=== PATIENT | female | born 1975 ===

== ENCOUNTER 2017-10-09 14:14 | Emergency (ER) | payer OTHER ==
[2017-10-09 14:23] VITALS: TEMP 96.4
--- NOTE | 2017-10-09 15:29 | ED PDOC ---
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 SWELLING NOTED ALONG RIGHT SIDE OF FACE. INJURY OCCURRED AROUND NOON TODAY. NO LOC.) Past Medical History Reviewed: Historical Data, Nursing Documentation, Vital Signs Vital Signs: Last Vital Signs Temp 96.4 F L 10/09/17 14:19 Pulse 68 10/09/17 14:19 Resp 20 10/09/17 14:19 BP 116/66 10/09/17 14:19 Pulse Ox 100 10/09/17 14:19 - Medical History PMH: Anxiety, Depression, Gastritis, Hyperlipidemia, Hypothyroidism, Seizures Denies: Arthritis, CHF, COPD, HTN, Hypercholesterolemia, Chronic Kidney Disease, Rheumatoid Arthritis - Surgical History Surgical History: Cholecystectomy - Family History Family History: States: Unknown Family Hx - Home Medications Home Medications: Ambulatory Orders Medication Instructions Recorded Alprazolam [Xanax] 0.5 mg PO BID PRN #0 tab 11/10/15 Aspirin [Ecotrin] 81 mg PO DAILY #0 tabec 11/10/15 Famotidine [Pepcid] 20 mg PO DAILY #30 tab 11/10/15 Ibuprofen [Motrin] 600 mg PO Q6H PRN #0 tab 11/10/15 Lactulose [Generlac] 20 gm PO DAILY PRN #0 dose 11/10/15 Lamotrigine [Lamictal] 25 mg PO Q12H #0 tab 11/10/15 Levothyroxine [Synthroid] 75 mg PO DAILY #0 tab 11/10/15 Oxybutynin Chloride 5 mg PO QPM #0 tab 11/10/15 Pantoprazole Sodium [Protonix] 40 mg PO DAILY #0 ect 11/10/15 Sennosides A and B [Senna] 8.6 mg PO DAILY PRN #0 tab 11/10/15 Triamcinolone Acetonide [Nasacort] 2 spray CHUCK DAILY PRN #0 ml 11/10/15 lamoTRIgine [Lamictal] 25 mg PO Q12H #0 tab 11/10/15 Ibuprofen [Motrin] 600 mg PO Q8 PRN #21 tab 10/09/17 - Allergies Allergies/Adverse Reactions: Allergies Allergy/AdvReac Type Severity Reaction Status Date / Time loratadine Allergy RASH Verified 10/04/16 00:09 Review of Systems ROS Statement: Except As Marked, All Systems Reviewed And Found Negative Physical Exam - Reviewed Nursing Documentation Reviewed: Yes Vital Signs Reviewed: Yes - Physical Exam Appears: Positive for: Well, Non-toxic, No Acute Distress Head Exam: Positive for: ATRAUMATIC, NORMAL INSPECTION, NORMOCEPHALIC Skin: Positive for: Normal Color, Warm, DRY Eye Exam: Positive for: EOMI, Normal appearance, PERRL ENT: Positive for: Normal ENT Inspection, Other (RIGHT FACIAL SWELLING ECCHYMOSIS) Neck: Positive for: Normal, Painless ROM Cardiovascular/Chest: Positive for: Regular Rate, Rhythm Respiratory: Positive for: CNT, Normal Breath Sounds Gastrointestinal/Abdominal: Positive for: Normal Exam, Bowel Sounds, Soft Back: Positive for: Normal Inspection Extremity: Positive for: Normal ROM Neurologic/Psych: Positive for: Alert, Oriented - ECG O2 Sat by Pulse Oximetry: 100 - Progress ED Course And Treament: CT MAXILLOFACIAL Impression: No acute findings identified. See above. CT HEAD: IMPRESSION: Stable appearing extensive postoperative changes within the posterior fossa as above. Stable appearing mild ventricular dilatation. Right trans parietal HOTEL HOUSEMAN shunt in stable position. Additional findings as above. Disposition - Clinical Impression Clinical Impression: Facial contusion - Patient ED Disposition Is Patient to be Admitted: No - Disposition Disposition: Routine/Home Disposition Time: 18:31 Condition: STABLE Prescriptions: Ibuprofen [Motrin] 600 mg PO Q8 PRN #21 tab PRN Reason: Pain, Moderate (4-7) Instructions: Facial Contusion (ED) Forms: [employer] (Mauritian)
--- NOTE | 2017-10-09 17:48 | CT ---
PROCEDURE: CT HEAD WITHOUT CONTRAST. HISTORY: FACIAL INJURY COMPARISON: Noncontrast head CT performed 10/04/16 TECHNIQUE: Axial computed tomography images were obtained through the head/brain without intravenous contrast. Radiation dose: Total exam DLP = 365.24 mGy-cm. This CT exam was performed using one or more of the following dose reduction techniques: Automated exposure control, adjustment of the mA and/or kV according to patient size, and/or use of iterative reconstruction technique. FINDINGS: HEMORRHAGE: No intracranial hemorrhage. BRAIN: Right trans parietal REGULATORY TECHNICIAN shunt catheter in stable appearing position. Linear encephalomalacia re-identified within the right parietal lobe. Re-identified extensive postoperative changes involving the posterior fossa. Cerebellum demonstrates encephalomalacia which abuts a chronically dilated 4th ventricle. Adjacent extra-axial hyperdensity re-identified which may reflect chronic dural thickening. Lens shaped fluid density within the posterior fossa posteriorly at the site of prior craniotomy suspicious for chronic postoperative fluid collection. Overall stable in appearance. Tiny scattered calcifications within the brainstem, right temporal lobe, and right basal ganglia. Additional scattered white matter hypodensities, which are nonspecific, but often seen with chronic microvascular ischemic disease. Please note that MRI with diffusion imaging is more sensitive in the detection of acute ischemic event. VENTRICLES: Stable. CALVARIUM: Prior suboccipital craniectomy. PARANASAL SINUSES: Unremarkable as visualized. No significant inflammatory changes. MASTOID AIR CELLS: Unremarkable as visualized. No inflammatory changes. OTHER FINDINGS: None. IMPRESSION: Stable appearing extensive postoperative changes within the posterior fossa as above. Stable appearing mild ventricular dilatation. Right trans parietal REGULATORY TECHNICIAN shunt in stable position. Additional findings as above.
--- NOTE | 2017-10-09 17:58 | CT ---
CT maxillofacial bones without IV contrast Indication: Facial injury Comparison: Noncontrast head CT performed the same day. Technique: Axial computed tomography images were obtained of the maxillofacial bones without the use of intravenous contrast. Coronal and sagittal reformatted images were generated and reviewed. This CT exam was performed using 1 or more of the falling dose reduction techniques: Automated exposure control, adjustment of the MAA and/or kV according to patient size, and/or use of iterative reconstruction technique. Radiation dose: Total exam DLP = 748.22 mGy-cm. Findings: Streak artifact from dental hardware. The facial bones appear intact without acute displaced fracture. The orbits appear unremarkable. The temporomandibular joints are located. The mastoid air cells appear clear. The paranasal sinuses appear clear without air-fluid levels. Please refer to CT of the brain for more detailed discussion regarding visualized portions of the brain. Impression: No acute findings identified. See above.
[2017-10-09 19:05] VITALS: BP 105/70; PULSE 79; RESP 18; O2SAT 98
== END 2017-10-09 19:24 | disposition home or self-care (01) ==
LOC: H.ER 14:14
DX: S00.83XA Contusion of other part of head, initial encounter (principal); W19.XXXA Unspecified fall, initial encounter; Y92.89 Other specified places as the place of occurrence of the external cause

== ENCOUNTER 2018-03-30 01:20 | Emergency (ER) | payer OTHER ==
[2018-03-30 01:30] VITALS: O2SAT 100
--- NOTE | 2018-03-30 02:01 | ED PDOC ---
HPI: Trauma/Fall - HPI Additional Complaint(s): 43 yo female with history of hypothyroidsim, seizures, brain tumor s/p resection and MEMORY CARE DIRECTOR shunt in place brought in by EMS for eval of a fall and head injury sustained approx 1 hour ago. Daughter states patient was alone in bedroom and she and her brother heard a noise and found her mother in the floor at bedside unresponsive. Daughter reports around 2 min with LOC. Daughter states patient immediately complained of pain to right side of head and noticed a bruise on R forehead. Daughter states patient then began to "choke up" on her words and complained of seeing "black". Daughter states patient usually gets these type of after a fall. Denies vomiting, vision changes, extremity numbness/ weakness, neck/back pain, chest pain. Patient very poor historian at this time. <Alok Zeng - Last Filed: 03/30/18 05:14> <Ap Scott - Last Filed: 03/30/18 23:31> - HPI Time Seen by Provider: 03/30/18 01:38 Chief Complaint (Nursing): Trauma Supervising Attending Note - Supervising Attending Note The Documented history was done by the: Physician Data Deliverables Manager The documented physical exam was done by the: Physician Data Deliverables Manager - Attestation: I have personally seen and examined this patient.: Yes I have fully participated in the care of the patient.: Yes I have reviewed all pertinent clinical information, including history, physical exam and plan: Yes <Ap Scott - Last Filed: 03/30/18 23:31> Past Medical History Vital Signs: Last Vital Signs Temp 98 F 03/30/18 01:22 Pulse 84 03/30/18 01:22 Resp 16 03/30/18 01:22 BP 137/62 03/30/18 01:22 Pulse Ox 100 03/30/18 01:22 - Medical History PMH: Anxiety, Depression, Gastritis, Hyperlipidemia, Hypothyroidism, Seizures Denies: Arthritis, CHF, COPD, HTN, Hypercholesterolemia, Chronic Kidney Disease, Rheumatoid Arthritis - Surgical History Surgical History: Cholecystectomy - Family History Family History: States: Unknown Family Hx <Alok Zeng - Last Filed: 03/30/18 05:14> Vital Signs: Last Vital Signs Temp 97.8 F 03/30/18 05:34 Pulse 72 05/20/18 05:34 Resp 18 03/30/18 05:34 BP 105/71 03/30/18 05:34 Pulse Ox 100 03/30/18 05:34 <Ap Scott - Last Filed: 03/30/18 23:31> - Home Medications Home Medications: Ambulatory Orders Medication Instructions Recorded Alprazolam [Xanax] 0.5 mg PO BID PRN #0 tab 11/10/15 Aspirin [Ecotrin] 81 mg PO DAILY #0 tabec 11/10/15 Famotidine [Pepcid] 20 mg PO DAILY #30 tab 11/10/15 Ibuprofen [Motrin] 600 mg PO Q6H PRN #0 tab 11/10/15 Lactulose [Generlac] 20 gm PO DAILY PRN #0 dose 11/10/15 Lamotrigine [Lamictal] 25 mg PO Q12H #0 tab 11/10/15 Levothyroxine [Synthroid] 75 mg PO DAILY #0 tab 11/10/15 Oxybutynin Chloride 5 mg PO QPM #0 tab 11/10/15 Pantoprazole Sodium [Protonix] 40 mg PO DAILY #0 ect 11/10/15 Sennosides A and B [Senna] 8.6 mg PO DAILY PRN #0 tab 11/10/15 Triamcinolone Acetonide [Nasacort] 2 spray CHUCK DAILY PRN #0 ml 11/10/15 lamoTRIgine [Lamictal] 25 mg PO Q12H #0 tab 11/10/15 Ibuprofen [Motrin] 600 mg PO Q8 PRN #21 tab 10/09/17 - Allergies Allergies/Adverse Reactions: Allergies Allergy/AdvReac Type Severity Reaction Status Date / Time loratadine Allergy RASH Verified 10/04/16 00:09 Review of Systems ROS Statement: Except As Marked, All Systems Reviewed And Found Negative <Alok Zeng - Last Filed: 03/30/18 05:14> Physical Exam - Reviewed Nursing Documentation Reviewed: Yes Vital Signs Reviewed: Yes - Physical Exam Appears: Positive for: No Acute Distress Head Exam: Positive for: NORMOCEPHALIC (Bruise and swelling noted on R side of forehead.) Skin: Positive for: Normal Color, Warm, Dry Eye Exam: Positive for: EOMI, PERRL Cardiovascular/Chest: Positive for: Regular Rate, Rhythm. Negative for: Edema Respiratory: Positive for: Normal Breath Sounds. Negative for: Rhonchi, Wheezing Gastrointestinal/Abdominal: Positive for: Bowel Sounds, Soft. Negative for: Tenderness, Distended Neurologic/Psych: Positive for: Alert. Negative for: Oriented <Alok Zeng - Last Filed: 03/30/18 05:14> - Laboratory Results Result Diagrams: 03/30/18 02:57 - ECG O2 Sat by Pulse Oximetry: 100 - Progress ED Course And Treament: CBC, CMP MG, phos PT/PTT Head CT w/o contrast. Tylenol PO Ativan 1 mg IV (sedation for CT, pt anxious with exam) Reeval. 0330 Patient sleeping no complaint of pain at this time. Difficult to obtain blood due to bad veins. CBC mild anemia H/H 10.8/32.6 HEAD W/O CONTRAST Exam Date: 03/30/18 This imaging exam was performed at [facility] EXAM: CT Head Without Intravenous Contrast CLINICAL HISTORY: 43 years old, female; Injury or trauma; Fall; Initial encounter; Blunt trauma (contusions or hematomas); Consciousness not specified; Additional info: Fall, head injury TECHNIQUE: Axial computed tomography images of the head/brain without intravenous contrast. All CT scans at this facility use one or more dose reduction techniques, viz.: automated exposure control; ma/kV adjustment per patient size (including targeted exams where dose is matched to indication; i.e. head); or iterative reconstruction technique. Coronal and sagittal reformatted images were created and reviewed. COMPARISON: CT - HEAD W/O CONTRAST 2017-10-09 17:19 FINDINGS: Brain: Stable encephalomalacia in the cerebellum. There is mild diffuse cerebral atrophy present, consistent with this patient's age. There is mild diffuse heterogeneity of the white matter attenuation, consistent with chronic white matter ischemic changes. There is encephalomalacia along the right parietal ventriculostomy shunt catheter. No hemorrhage. Ventricles: The ventricular system demonstrates mild diffuse compensatory enlargement. Bones/joints: Status post suboccipital craniectomy. Sinuses: Unremarkable as visualized. No acute sinusitis. Mastoid air cells: Unremarkable as visualized. No mastoid effusion. Tubes, lines and devices: Stable right-sided ventriculostomy shunt catheter entering from a parietal approach. IMPRESSION: Age-related atrophy and chronic white matter ischemic changes, with no evidence of an acute intracranial abnormality. Stable cerebellar encephalomalacia. Stable right parietal encephalomalacia along the ventriculostomy shunt catheter tract. <Alok Zeng - Last Filed: 03/30/18 05:14> - Laboratory Results Result Diagrams: 03/30/18 02:57 <Ap Scott - Last Filed: 03/30/18 23:31> Disposition - Patient ED Disposition Is Patient to be Admitted: No - Disposition Disposition: Routine/Home Disposition Time: 05:13 <Alok Zeng - Last Filed: 03/30/18 05:14> <Ap Scott - Last Filed: 03/30/18 23:31> - Clinical Impression Clinical Impression: Head injury - Disposition Condition: STABLE Additional Instructions: f/u with PCP in 2-3 days ER precautions reviewed Instructions: Minor Head Injury Forms: [employer] (Spanish)
[2018-03-30 03:02] LABS: BASO % 0.4 % (0.0-2.0); EOS # 0.1 K/uL (0.0-0.7); EOS % 1.7 % (0.0-4.0); HEMOGLOBIN 10.8 g/dL (12.0-16.0); LYMPH # 1.4 K/uL (1.0-4.3); LYMPH % 20.6 % (20.0-40.0); MEAN CELL VOLUME 93.8 fl (81.0-99.0); MEAN CORPUSCULAR HEMOGLOBIN 31.1 pg (27.0-31.0); MEAN CORPUSCULAR HGB CONC 33.2 g/dL (33.0-37.0); MEAN PLATELET VOLUME 8.1 fl (7.2-11.7); MONO # 0.4 K/uL (0.0-0.8); MONO % 5.9 % (0.0-10.0); NEUT # 4.8 K/uL (1.8-7.0); NEUT % 71.4 % (50.0-75.0); NRBC % 0.1 % (0.0-0.0); RBC 3.48 Mil/uL (3.80-5.20); RED CELL DISTRIBUTION WIDTH 14.2 % (11.5-14.5); WHITE BLOOD COUNT 6.8 K/uL (4.8-10.8)
--- NOTE | 2018-03-30 04:22 | CT ---
EXAM: CT Head Without Intravenous Contrast CLINICAL HISTORY: 43 years old, female; Injury or trauma; Fall; Initial encounter; Blunt trauma (contusions or hematomas); Consciousness not specified; Additional info: Fall, head injury TECHNIQUE: Axial computed tomography images of the head/brain without intravenous contrast. All CT scans at this facility use one or more dose reduction techniques, viz.: automated exposure control; ma/kV adjustment per patient size (including targeted exams where dose is matched to indication; i.e. head); or iterative reconstruction technique. Coronal and sagittal reformatted images were created and reviewed. COMPARISON: CT - HEAD W/O CONTRAST 2017-10-09 17:19 FINDINGS: Brain: Stable encephalomalacia in the cerebellum. There is mild diffuse cerebral atrophy present, consistent with this patient's age. There is mild diffuse heterogeneity of the white matter attenuation, consistent with chronic white matter ischemic changes. There is encephalomalacia along the right parietal ventriculostomy shunt catheter. No hemorrhage. Ventricles: The ventricular system demonstrates mild diffuse compensatory enlargement. Bones/joints: Status post suboccipital craniectomy. Sinuses: Unremarkable as visualized. No acute sinusitis. Mastoid air cells: Unremarkable as visualized. No mastoid effusion. Tubes, lines and devices: Stable right-sided ventriculostomy shunt catheter entering from a parietal approach. IMPRESSION: Age-related atrophy and chronic white matter ischemic changes, with no evidence of an acute intracranial abnormality. Stable cerebellar encephalomalacia. Stable right parietal encephalomalacia along the ventriculostomy shunt catheter tract.
[2018-03-30 05:51] VITALS: BP 105/71; PULSE 72; RESP 18; TEMP 97.8
== END 2018-03-30 05:35 | disposition home or self-care (01) ==
LOC: H.ER 01:20
DX: S09.90XA Unspecified injury of head, initial encounter (principal); E03.9 Hypothyroidism, unspecified; E78.5 Hyperlipidemia, unspecified; Z86.59 Personal history of other mental and behavioral disorders; G93.89 Other specified disorders of brain; R56.9 Unspecified convulsions; S00.83XA Contusion of other part of head, initial encounter; Z79.82 Long term (current) use of aspirin; Z98.2 Presence of cerebrospinal fluid drainage device; Z98.890 Other specified postprocedural states; W19.XXXA Unspecified fall, initial encounter
CPT/HCPCS: 70450; 85025; 96374; 99285; J2060

== ENCOUNTER 2018-12-10 14:03 | Inpatient (IN) | payer OTHER ==
--- NOTE | 2018-12-10 14:15 | ED PDOC ---
HPI:STROKE - Time Time: 14:13 - Chief Complaint Chief Complaint: Slurred speech - Onset Date: 12/10/18 Time: 12:00 - Timing Timing: Currently Symptomatic - Context Context: Standing - Location Location: Speech - Severity of pain Maximum severity:: Severe Severity Current: Severe - Associated Symptoms Associated symptoms:: Headache - Exacerbated by Exacerbated by:: Nothing - Relieved by Relieved by:: Nothing - TPA Positive for Contraindication: Yes Reason tPA is not being Administered: Trauma - Notes: Notes:: Hx obtained from paramedics and daughter. 12 noon today, pt fell possibly tripped on edge of bed. Hit left side of head on wall. No LOC. Since injury has had slurred speech and agitation. Indicating that she has headache left side NIHSS Stroke Scale - How Severe is the Stroke Level of Consciousness: 0=Alert LOC to Questions: 2=Neither correct LOC to commands: 1=Obeys one correctly Best Gaze: 0=Normal Visual: 0=No visual loss Facial: 0=Normal Motor Arm - Left: 0=No drift Motor Arm - Right: 0=No drift Motor Leg - Left: 4=No movement Motor Leg - Right: 4=No movement Limb Ataxia: 0=Absent Sensory: 0=Normal Best Language: 2=Severe aphasia Dysarthia: 2=Severe, near unintelligible or worse Extinction & Inattention (Neglect): 0=Normal, no object Score: 15 rTPA Inclusion/Exclusion - Refusal of Treatment Patient Refused Treatment: No - Inclusion Criteria for Altepase Patient is 18 years or Older: Yes The Clinical Diagnosis of Ischemic Stroke That is Causing a Potentially Disabling Neurological Deficit: No Time of Onset is Well Established to be Less Than 270 Minute Before Treatment Would Begin: Yes Risk/Benefit Discussed With Patient/Family Member Present: No Past Medical History - Medical History PMH: Anxiety, Depression, Gastritis, Hyperlipidemia, Hypothyroidism, Seizures Denies: Arthritis, CHF, COPD, HTN, Hypercholesterolemia, Chronic Kidney Disease, Rheumatoid Arthritis - Surgical History Surgical History: Cholecystectomy Other surgeries: AV shunt for hydrocephalus - Family History Family History: States: Unknown Family Hx - Home Medications Home Medications: Ambulatory Orders Medication Instructions Recorded Alprazolam [Xanax] 0.5 mg PO DAILY 12/10/18 Ascorbic Acid [Vitamin C] 500 mg PO DAILY 12/10/18 Citalopram Hydrobromide [Celexa] 10 mg PO Q12 12/10/18 Docusate [Colace] 100 mg PO Q12 12/10/18 Ferrous Sulfate [Feosol] 325 mg PO Q8 12/10/18 Fexofenadine/Pseudoephedrine 1 tab PO DAILY 12/10/18 [Maryjo-D 24 Hour Tablet] Levothyroxine [Synthroid] 75 mcg PO DAILY 12/10/18 Oxybutynin [Ditropan Tab] 5 mg PO Q12 12/10/18 Topiramate [Topamax] 25 mg PO QPM 12/10/18 lamoTRIgine [Lamictal] 25 mg PO Q12 12/10/18 - Allergies Allergies/Adverse Reactions: Allergies Allergy/AdvReac Type Severity Reaction Status Date / Time loratadine Allergy RASH Verified 12/10/18 14:09 Review of Systems Review Of Systems: ROS cannot be obtained secondary to pt's inabilty to answer questions. Physical Exam - Reviewed Nursing Documentation Reviewed: Yes Vital Signs Reviewed: Yes - Physical Exam Appears: Positive for: Non-toxic Head Exam: Positive for: ATRAUMATIC, NORMAL INSPECTION, NORMOCEPHALIC Skin: Positive for: Normal Color, Warm, DRY Eye Exam: Positive for: EOMI, Normal appearance, PERRL ENT: Positive for: Normal ENT Inspection Neck: Positive for: Normal, Painless ROM Cardiovascular/Chest: Positive for: Regular Rate, Rhythm Respiratory: Positive for: CNT, Normal Breath Sounds Gastrointestinal/Abdominal: Positive for: Normal Exam, Soft Back: Positive for: Normal Inspection Extremity: Positive for: Normal ROM Neurologic/Psych: Positive for: Other (Awake nasweing in one word sentence saying boom. Follows commands re movement upper ext but does not move lower ext.) Medical Decision Making Medical Decision Making: H/o hydrocephalus with AV shunt, h/o seizure disorder. Unclear if sxs are trauma related, bleed form aneurysm or CVA or related to hydrocephalus or seizure. Will obtain CT head and CT angio 15:[address] Edwards who reviewed CT and CTA. No evidence of stroke, bleed, or large vessel M1 or M2 occlusion. Not a candidate for TPA as patient has hydrocephalus with shunt and fall with head injury prior to arrival. Patient is at increased risk for bleed and is to be admitted here and to receive aspirin and an ekg to rule out seizure. Disposition - Clinical Impression Clinical Impression: CVA (cerebral vascular accident) - Patient ED Disposition Is Patient to be Admitted: Yes - Disposition Disposition Time: 15:19 Condition: FAIR Forms: [facility] (Slovak) - Pt Status Changed To: Hospital Disposition Of: Inpatient - Admit Certification Admit to Inpatient:: After my assessment, the patient will require hospitalization for at least two midnights. This is because of the severity of symptoms shown, intensity of services needed, and/or the medical risk in this patient being treated as an outpatient. - POA Present On Arrival: None
[2018-12-10] MEDS ORDERED: Iodixanol 320 MG/ML 100 ML BOTTLE IV ONE (14:32)
[2018-12-10] MEDS ORDERED: Sodium Chloride 0.9% 50 ML IV ONE (14:32)
--- NOTE | 2018-12-10 14:47 | CT ---
Date of service: 12/10/2018 PROCEDURE: CT HEAD WITHOUT CONTRAST. HISTORY: code stroke COMPARISON: 03/30/2018 TECHNIQUE: Axial computed tomography images were obtained through the head/brain without intravenous contrast. Radiation dose: Total exam DLP = 1024.41 mGy-cm. This CT exam was performed using one or more of the following dose reduction techniques: Automated exposure control, adjustment of the mA and/or kV according to patient size, and/or use of iterative reconstruction technique. FINDINGS: HEMORRHAGE: No intracranial hemorrhage seen. BRAIN: No mass effect or edema. Prior cerebral atrophy and cerebellar atrophy are similar. Prior periventricular Lisa shunt encephalomalacia similar. Prior right cerebellar hemispheric encephalomalacia similar. Chronic microvascular ischemic changes symmetrical periventricular appear similar. VENTRICLES: Dilated [id number] right ventricular shunt catheter tip appears to be largely chest above the posterior right lateral ventricle and/or outpouching of it and blends with the surrounding band of right posterior parietal occipital encephalomalacia. The ventricular shunt is per right posterior parietal approach. Correlation with function of the shunt is advised. The overall ventricular prominence is similar to perhaps very slightly increased compared to the prior exam both lateral ventricles. Angles of imaging or also different and may contribute this appearance. CALVARIUM: Similar-appearing sub occipital craniectomy PARANASAL SINUSES: Unremarkable as visualized. No significant inflammatory changes. MASTOID AIR CELLS: Unremarkable as visualized. No inflammatory changes. OTHER FINDINGS: None. IMPRESSION: No interval hemorrhage or interval mass effect seen. Hydrocephalus-similar to perhaps slightly increased in caliber since prior exam. Right ventriculostomy tube positioning projects along the superior aspect of the posterior parietal occipital ventricle are not patchy of the same. No definite change in position of the shunt tube is seen here. However the tip may be actually within in the regional cystic encephalomalacia changes here rather than within the ventricle proper. Correlation with shunt function is advised. Encephalomalacia changes right Lisa shunt and right cerebellar hemisphere is similar in appearance as above. Postop changes as above.
[2018-12-10] MEDS: Sodium Chloride 0.9% 1,000 ML IV SCH (15:06)
[2018-12-10] MEDS ORDERED: Sodium Chloride 0.9% 1,000 ML IV STA (15:08)
--- NOTE | 2018-12-10 15:17 | RAD ---
Date of service: 12/10/2018 HISTORY: Code Stroke COMPARISON: 11/09/2015 FINDINGS: LUNGS: No active pulmonary disease. PLEURA: No significant pleural effusion identified, no pneumothorax apparent. CARDIOVASCULAR: No aortic atherosclerotic calcification present. Normal cardiac size. No pulmonary vascular congestion. OSSEOUS STRUCTURES: No significant abnormalities. VISUALIZED UPPER ABDOMEN: Contrast within the left collecting system noted patient had recent CTA head neck study. Surgical clips in right upper quadrant present and similar. Ventricular peritoneal shunt projecting longitudinally over the right neck right thorax and right upper abdomen. Tip beyond the inferior edge of this image. OTHER FINDINGS: None. IMPRESSION: No interval pathology noted.
--- NOTE | 2018-12-10 16:03 | CT ---
Date of service: 12/10/2018 PROCEDURE: CT Angiography of the Brain and Neck. HISTORY: severe [place] COMPARISON: None available. TECHNIQUE: CT angiography of the head and neck was performed following intravenous contrast administration. Coronal and sagittal maximum intensity projection reformatted images were generated. Contrast Dose: Visipaque 320, 99 cc Radiation dose: Total exam DLP = 445.03 mGy-cm. This CT exam was performed using one or more of the following dose reduction techniques: Automated exposure control, adjustment of the mA and/or kV according to patient size, and/or use of iterative reconstruction technique. FINDINGS: INTERNAL CEREBRAL ARTERIES: Unremarkable. The skull base, petrous, cavernous and supraclinoid segments are bilaterally widely patent. ANTERIOR CEREBRAL ARTERIES: Unremarkable. A1 and A2 segments are widely patent. Smaller distal branches unremarkable, as visualized. MIDDLE CEREBRAL ARTERIES: Unremarkable. M1 and M2 segments are widely patent. Perisylvian branches grossly symmetric. POSTERIOR CIRCULATION: Basilar Artery: Unremarkable. Distal Vertebral Arteries: Unremarkable. Posterior Cerebral Arteries: Unremarkable. Posterior Inferior Cerebellar Arteries: Unremarkable. NECK CTA: Common Carotid arteries: The bilateral common carotid appear widely patent from their origins to their bifurcations with no significant stenosis appreciated. No evidence to suggest common carotid artery dissection. Internal Carotid arteries: No significant stenosis is appreciated throughout the cervical internal carotid artery segments bilaterally and there is no evidence of dissection either. External Carotid arteries: Appear unremarkable bilaterally. Vertebral arteries: The bilateral vertebral arteries appear normal in caliber from their origins to their distal cervical segments. No significant stenosis or definite pattern of dissection. ANEURYSM/ VASCULAR MALFORMATIONS: None. OTHER FINDINGS: Incidental note made of prior partial bilateral suboccipital craniectomy and right-sided dionicio hole at right parietal bone. A 2nd dionicio hole at the right parietal bone provide access for right lateral ventricle shunt catheter. IMPRESSION: No definite occlusion or significant stenosis appreciated in CT angiography of the Head and Neck.
[2018-12-10 16:16] LABS: BLOOD UREA NITROGEN 13 mg/dl (7-17); GFR NON-AFRICAN AMERICAN > 60; HDL CHOLESTEROL 68 MG/DL (30-70)
[2018-12-10 16:25] LABS: ALBUMIN 4.3 g/dL (3.5-5.0); ALT/SGPT < 6 U/L (9-52); AST/SGOT 42 U/L (14-36)
[2018-12-10 16:29] LABS: LDL CHOLESTEROL 132 mg/dL (0-129)
[2018-12-10 16:44] LABS: PROTHROMBIN TIME 11.8 Seconds (9.8-13.1)
[2018-12-10 16:47] LABS: PARTIAL THROMBOPLASTIN TIME 34.7 Seconds (25.6-37.1)
[2018-12-10 18:36] LABS: EOS # 0.1 K/uL (0.0-0.7); EOS % 2.1 % (0.0-4.0); HEMOGLOBIN 13.2 g/dL (12.0-16.0); LYMPH # 1.2 K/uL (1.0-4.3); LYMPH % 25.4 % (20.0-40.0); MEAN CELL VOLUME 93.8 fl (81.0-99.0); MEAN CORPUSCULAR HEMOGLOBIN 31.1 pg (27.0-31.0); MEAN CORPUSCULAR HGB CONC 33.2 g/dL (33.0-37.0); MEAN PLATELET VOLUME 9.3 fl (7.2-11.7); MONO # 0.3 K/uL (0.0-0.8); NEUT # 2.9 K/uL (1.8-7.0); NEUT % 64.5 % (50.0-75.0); RBC 4.23 Mil/uL (3.80-5.20); RED CELL DISTRIBUTION WIDTH 15.2 % (11.5-14.5); WHITE BLOOD COUNT 4.6 K/uL (4.8-10.8)
[2018-12-10] MEDS ORDERED: Influenza Vaccine 60 mcg/0.5 mL SYR (4YR UP) IM ONE (19:00)
[2018-12-10] MEDS ORDERED: Pneumococcal 23-Valent Vaccine IM ONE (19:01)
[2018-12-11] MEDS: Sodium Chloride 0.9% 1,000 ML IV SCH ×2 (04:54→21:19)
[2018-12-11] MEDS: Levothyroxine 75 MCG TAB PO SCH (05:40)
[2018-12-11 06:10] LABS: HEMOGLOBIN 11.4 g/dL (12.0-16.0); MEAN CELL VOLUME 92.9 fl (81.0-99.0); MEAN CORPUSCULAR HEMOGLOBIN 31.5 pg (27.0-31.0); MEAN CORPUSCULAR HGB CONC 33.9 g/dL (33.0-37.0); RBC 3.63 Mil/uL (3.80-5.20); RED CELL DISTRIBUTION WIDTH 14.4 % (11.5-14.5)
[2018-12-11 06:13] LABS: BLOOD UREA NITROGEN 10 mg/dl (7-17); CALCIUM 8.6 mg/dL (8.4-10.2); GFR NON-AFRICAN AMERICAN > 60; HDL CHOLESTEROL 57 MG/DL (30-70)
[2018-12-11 06:28] LABS: T4 1.53 ug/dl (5.5-11.0)
[2018-12-11 06:54] LABS: LDL CHOLESTEROL 120 mg/dL (0-129)
--- NOTE | 2018-12-11 11:58 | CARD ---
APPROVED REPORT Date of service: 12/10/2018 EKG Measurement Heart [id number] <Conclusion> Normal sinus rhythm Nonspecific ST and T wave abnormality Abnormal ECG
--- NOTE | 2018-12-11 15:31 | CP.PCM.CON ---
History of Present Illness - History of Present Illness History of Present Illness: Neurology Consultation Note: Consult requested by Dr. Smart The patient is a 43-year-old woman with a past medical history of ventricular shunt due to hydrocephalus who had a fall with head injury about 3 hours prior to arrival and developed confusion and speech difficulty. CT head showed encephalomalacia around the shunt and in the posterior fossa. She was not a good candidate for IV tPA due to recent fall with head injury and history of shunt and was 3 hours after symptom onset which increased the risk of bleeding significantly. There was no large vessel occlusion on CTA of the head/neck. Review of Systems - Review of Systems Systems not reviewed;Unavailable: Altered Mental Status Past Patient History - Infectious Disease Hx of Infectious Diseases: None - Past Medical History & Family History Past Medical History?: Yes - Past Social History Smoking Status: Never Smoked - CARDIAC Hx Congestive Heart Failure: No Hx Hypercholesterolemia: No Hx Hypertension: No - PULMONARY Hx Chronic Obstructive Pulmonary Disease (COPD): No - NEUROLOGICAL Hx Seizures: Yes - HEENT Hx HEENT Problems: Yes Other/Comment: glasses - RENAL Hx Chronic Kidney Disease: No - ENDOCRINE/METABOLIC Hx Hypothyroidism: Yes - HEMATOLOGICAL/ONCOLOGICAL Hx Blood Disorders: Yes Hx Cancer: Yes (Brain Tumor) Hx Chemotherapy: Yes - INTEGUMENTARY Hx Dermatological Problems: No - MUSCULOSKELETAL/RHEUMATOLOGICAL Hx Falls: Yes - GASTROINTESTINAL Hx Gastritis: Yes - GENITOURINARY/GYNECOLOGICAL Hx Genitourinary Disorders: No - PSYCHIATRIC Hx Substance Use: No - SURGICAL HISTORY Hx Cholecystectomy: Yes - ANESTHESIA Hx Anesthesia: Yes Hx Anesthesia Reactions: No Meds Home Medications: Home Medication List Medication Instructions Recorded Confirmed Type Atorvastatin [Lipitor] 10 mg PO DAILY 30 Days #30 tab 12/12/18 Rx Allergies/Adverse Reactions: Allergies Allergy/AdvReac Type Severity Reaction Status Date / Time loratadine Allergy RASH Verified 12/10/18 14:09 - Medications Medications: Current Medications Acetaminophen (Tylenol 325mg Tab) 650 mg PO Q6 PRN PRN Reason: Headache Ascorbic Acid (Vitamin C 500 Mg Tab) 500 mg PO DAILY [facility] Last Admin: 12/11/18 09:35 Dose: 500 mg Atorvastatin Calcium (Lipitor) 10 mg PO DAILY [facility] Citalopram Hydrobromide (Celexa) 10 mg PO Q12 [facility] Last Admin: 12/11/18 09:35 Dose: 10 mg Docusate Sodium (Colace) 100 mg PO Q12 [facility] Last Admin: 12/11/18 09:35 Dose: 100 mg Ferrous Sulfate (Feosol) 325 mg PO Q8 [facility] Last Admin: 12/11/18 09:35 Dose: 325 mg Sodium Chloride (Sodium Chloride 0.9%) 1,000 mls @ 100 mls/hr IV .Q10H [facility] Last Admin: 12/11/18 04:54 Dose: Not Given Lamotrigine (Lamictal) 25 mg PO Q12 [facility] Last Admin: 12/11/18 09:35 Dose: 25 mg Levothyroxine Sodium (Synthroid) 75 mcg PO DAILY@0630 [facility] Last Admin: 12/11/18 05:40 Dose: 75 mcg Oxybutynin Chloride (Ditropan Tab) 5 mg PO Q12 [facility] Last Admin: 12/11/18 09:35 Dose: 5 mg Topiramate (Topamax) 25 mg PO QPM [facility] Physical Exam - Constitutional Appears: Well - Head Exam Head Exam: ATRAUMATIC, NORMAL INSPECTION, NORMOCEPHALIC - Eye Exam Eye Exam: EOMI, Normal appearance, PERRL Pupil Exam: NORMAL ACCOMODATION, PERRL - ENT Exam ENT Exam: Mucous Membranes Moist, Normal Exam - Neck Exam Neck exam: Positive for: Normal Inspection - Respiratory Exam Respiratory Exam: Clear to Auscultation Bilateral, NORMAL BREATHING PATTERN - Cardiovascular Exam Cardiovascular Exam: REGULAR RHYTHM, +S1, +S2 - GI/Abdominal Exam GI & Abdominal Exam: Normal Bowel Sounds, Soft. absent: Tenderness - Extremities Exam Extremities exam: Positive for: normal inspection - Back Exam Back exam: NORMAL INSPECTION - Neurological Exam Neurological exam: Abnormal Gait, Alert, Altered, CN II-XII Intact, Reflexes Normal Additional comments: Confused, but not aphasic or dysarthric. Follows commands appropriately. Strength is symmetrical, but she is ataxic. Sensation is intact. NIHSS=1 for ataxia - Psychiatric Exam Psychiatric exam: Normal Affect, Normal Mood - Skin Skin Exam: Dry, Intact, Normal Color, Warm Results - Vital Signs Recent Vital Signs: Last Vital Signs Temp 98.1 F 12/11/18 12:03 Pulse 64 12/11/18 12:03 Resp 18 12/11/18 12:03 BP 95/59 L 12/11/18 12:03 Pulse Ox 99 12/11/18 12:03 - Labs Result Diagrams: 12/11/18 05:00 12/11/18 05:00 Labs: Laboratory Results - last 24 hr 12/10/18 12/10/18 12/10/18 14:09 15:23 15:50 WBC RBC Hgb Hct MCV MCH MCHC RDW Plt Count MPV Neut % (Auto) Lymph % (Auto) [place] % (Auto) Eos % (Auto) Baso % (Auto) Neut # (Auto) Lymph # (Auto) [place] # (Auto) Eos # (Auto) Baso # (Auto) PT INR APTT Sodium 131 L Potassium 4.4 Chloride 93 L Carbon Dioxide 25 Anion Gap 17 BUN 13 Creatinine 0.5 L Est GFR ( Amer) > 60 Est GFR (Non-Af Amer) > 60 POC Glucose (mg/dL) 66 Random Glucose 70 Hemoglobin A1c Calcium 9.0 Total Bilirubin 0.9 AST 42 H ALT < 6 L D Alkaline Phosphatase 73 Troponin I < 0.0120 Total Protein 8.6 H Albumin 4.3 Globulin 4.3 H Albumin/Globulin Ratio 1.0 Triglycerides 100 Cholesterol 260 H LDL Cholesterol Direct 132 H HDL Cholesterol 68 Thyroxine (T4) TSH 3rd Generation Blood Type O POSITIVE Antibody Screen Negative BBK History Checked Patient has bt 12/10/18 12/10/18 12/10/18 16:20 18:04 18:30 WBC 4.6 L RBC 4.23 Hgb 13.2 D Hct 39.7 MCV 93.8 MCH 31.1 H MCHC 33.2 RDW 15.2 H Plt Count 187 MPV 9.3 Neut % (Auto) 64.5 Lymph % (Auto) 25.4 [place] % (Auto) 7.0 Eos % (Auto) 2.1 Baso % (Auto) 1.0 Neut # (Auto) 2.9 Lymph # (Auto) 1.2 [place] # (Auto) 0.3 Eos # (Auto) 0.1 Baso # (Auto) 0.0 PT 11.8 INR 1.0 APTT 34.7 Sodium Potassium Chloride Carbon Dioxide Anion Gap BUN Creatinine Est GFR ( Amer) Est GFR (Non-Af Amer) POC Glucose (mg/dL) Random Glucose Hemoglobin A1c 5.6 Calcium Total Bilirubin AST ALT Alkaline Phosphatase Troponin I Total Protein Albumin Globulin Albumin/Globulin Ratio Triglycerides Cholesterol LDL Cholesterol Direct HDL Cholesterol Thyroxine (T4) TSH 3rd Generation Blood Type Antibody Screen BBK History Checked 12/10/18 12/11/18 12/11/18 23:01 05:00 05:00 WBC 6.0 RBC 3.63 L Hgb 11.4 L Hct 33.7 L MCV 92.9 MCH 31.5 H MCHC 33.9 RDW 14.4 Plt Count 184 MPV Neut % (Auto) Lymph % (Auto) [place] % (Auto) Eos % (Auto) Baso % (Auto) Neut # (Auto) Lymph # (Auto) [place] # (Auto) Eos # (Auto) Baso # (Auto) PT INR APTT Sodium 132 Potassium 3.6 Chloride 93 L Carbon Dioxide 30 Anion Gap 13 BUN 10 Creatinine 0.6 L Est GFR ( Amer) > 60 Est GFR (Non-Af Amer) > 60 POC Glucose (mg/dL) 88 Random Glucose 87 Hemoglobin A1c Calcium 8.6 Total Bilirubin AST ALT Alkaline Phosphatase Troponin I Total Protein Albumin Globulin Albumin/Globulin Ratio Triglycerides 97 Cholesterol 218 H LDL Cholesterol Direct 120 HDL Cholesterol 57 Thyroxine (T4) 1.53 L TSH 3rd Generation 27.10 H Blood Type Antibody Screen BBK History Checked Assessment & Plan - Assessment and Plan (Free Text) Assessment: Acute encephalopathy is now resolved. The patient does not appear to have any focal deficits and is at her baseline now. With her history of encephalomalacia, hydrocephalus and shunt, a seizure is possible. EEG did not show seizure, but it was consistent with a focal area of dysfunction that could cause seizures. Plan: I recommend titrating up Lamictal to therapeutic dose of 100 mg BID for seizure prophylaxis. May go up to 50 mg BID now and titrate up as an outpatient. I recommend PT/OT eval and follow up with neurology as outpatient. Thank you for this consultation.
--- NOTE | 2018-12-11 17:01 | PCM.EEG ---
Electroencephalogram Report - Electroencephalogram Report Procedure Date: 12/11/18 Medication: Lipitor, Citalopram, Topamax. Interpretation: Technical Information: This was a 16-channel EEG, 1-channel EKG , performed using an [email or web address] machine., electrodes were applied according to the 10/20 international placement system, impedances were less than 5 K Ohm. Start; 10;38 End; 11;23 Total 47 min INDICATION; alter mental status. RESULTS: During active states, the EEG was characterized by 10-20 Hz, 15-30 uV activity bilaterally in fronto-central regions, with slightly slower frequencies and higher amplitudes emerging on the right. Resting wakefulness was characterized by a symmetric posterior dominant rhythm of 8-9 Hz, 30-50 uV, which was reactive to eye opening and closing, with greater amplitudes on the right. Drowsiness seen at 11;07 was associated with slow roving eye movements, slowing and fragmentation of the posterior dominant rhythm, and bilateral 4-7 Hz, 40-70 uV theta activity. Sleep was not seen. Photic stimulation was performed and there were no changes in the record. Throughout the recording, there was evidence of intermittent right posteriro quadrant, l l 3-6 Hz, 30-75 uV slowing. Impression: This is an abnormal EEG record due to the presence of 1- Right posterior quadrant intermittent slowing. No seizures, no interictal, not in status epilepticus. . INTERPRETATION: The findings are in keeping with a focal cortical abnormality involving the right posterior quadrant region, in keeping with a structural abnormality in the same area.
--- NOTE | 2018-12-11 19:56 | HP ---
HISTORY OF PRESENT ILLNESS: Ms. León is 43-year-old female who was admitted via the emergency room following an accidental fall or trip and fall at home, followed by slurred speech on the day of admission. Since the injury she has had slurred speech but has no other deficits. PAST MEDICAL HISTORY: She has a history of hydrocephalus, anxiety disorder, depression, gastritis, hyperlipidemia, hypothyroidism, seizure disorder, and cough. No other history is obtained from her. She had arrived in the emergency room via EMS and her daughter was present at the time of arrival. She also has a history of [employer] shunt for the hydrocephalus. FAMILY HISTORY: No family history is obtained. MEDICATIONS: The medication list is available and has been reconciled. PHYSICAL EXAMINATION: GENERAL: The patient is awake and alert. Has no other gross neurological deficits except for slurred speech. She is just able to say she has pain; otherwise is nonverbal. VITAL SIGNS: Remarkable for blood pressure of 99/63, pulse of 66, respiratory rate 18. She is febrile. O2 sat is 99% on room air. SKIN: Shows fair turgor. HEENT: Pupils are equal and reactive to light and accommodation. Mouth shows fair hygiene. LUNGS: Clear. HEART: Regular. No murmurs or gallops. ABDOMEN: Soft, nontender, organomegaly. EXTREMITIES: Show no edema or cyanosis. CENTRAL NERVOUS SYSTEM: One is unable to evaluate this appropriately because the patient is really nonverbal and has slurred speech but otherwise no other gross deficits appreciated. LABORATORY DATA: Remarkable for WBC of 6, hemoglobin 11.4, platelet count of 184,000. Sodium 132, potassium 3.6, BUN of 10, creatinine 0.6. Cholesterol 218, LDL 120, HDL 57. TSH 27, T4 1.5. Chest x-ray: No interval pathology noted. CAT scan of the head is remarkable for no hemorrhage, hydrocephalus, right ventriculostomy tube positioned and projects along the superior aspects of posterior parietal occipital ventricle. No definite change in position is noted since seen in the past, however, it may be actually within region of cystic encephalomalacia rather than within the ventricle proper, encephalomalacia changes. Head and neck CTA; no definite occlusion or significant stenosis appreciated on CT angio of the head and neck. IMPRESSION: Fall; accidental or due to cerebrovascular accident has to be ruled out. History of hydrocephalus with ventriculoperitoneal shunt. Aphasia at present; one has to rule out new cerebrovascular accident. PLAN: Neurology evaluation, physical therapy, occupational therapy. Will start the patient on aspirin and statins. The patient also appears to have hypothyroidism. We will place the patient on low-dose thyroid supplementation, await Urology evaluation to determine further therapy. Saleem Laguerre MD
[2018-12-12] MEDS: Levothyroxine 75 MCG TAB PO SCH (06:19)
[2018-12-12 08:39] VITALS: BP 91/53; PULSE 63; RESP 20; TEMP 97.9; O2SAT 96
--- NOTE | 2018-12-12 13:04 | CP.PCM.DIS ---
Provider - Provider Date of Admission: 12/10/18 15:11 Attending physician: Saleem Laguerre MD Consults: 12/10/18 14:12 Stroke Team Consult Stat Comment: Consulting Provider: Neurohospitalist Consulting Physician: NEUROHOSERGIO Neurohospitalist for Consult: Ludwig Edwards Neurohospitalist for Consult: Reji Austin Reason for Consult: sever headache 12/11/18 08:55 Neurology Consult Routine Comment: Consulting Provider: Ludwig Edwards Consulting Physician: Ludwig Edwards Reason for Consult: fall hydrocephalus Time Spent in preparation of Discharge (in minutes): 30 Diagnosis - Discharge Diagnosis (1) Hydrocephalus Status: Acute (2) Anxiety Status: Acute (3) DVT prophylaxis Status: Acute (4) Head injury Status: Acute (5) Hypothyroid Status: Acute (6) Scalp contusion Status: Acute Hospital Course - Lab Results Lab Results: Most Recent Lab Values WBC 6.0 K/uL (4.8-10.8) 12/11/18 05:00 RBC 3.63 Mil/uL (3.80-5.20) L 12/11/18 05:00 Hgb 11.4 g/dL (12.0-16.0) L 12/11/18 05:00 Hct 33.7 % (34.0-47.0) L 12/11/18 05:00 MCV 92.9 fl (81.0-99.0) 12/11/18 05:00 MCH 31.5 pg (27.0-31.0) H 12/11/18 05:00 MCHC 33.9 g/dL (33.0-37.0) 12/11/18 05:00 RDW 14.4 % (11.5-14.5) 12/11/18 05:00 Plt Count 184 K/uL (130-400) 12/11/18 05:00 MPV 9.3 fl (7.2-11.7) 12/10/18 18:30 Neut % (Auto) 64.5 % (50.0-75.0) 12/10/18 18:30 Lymph % (Auto) 25.4 % (20.0-40.0) 12/10/18 18:30 Carbon % (Auto) 7.0 % (0.0-10.0) 12/10/18 18:30 Eos % (Auto) 2.1 % (0.0-4.0) 12/10/18 18:30 Baso % (Auto) 1.0 % (0.0-2.0) 12/10/18 18:30 Neut # (Auto) 2.9 K/uL (1.8-7.0) 12/10/18 18:30 Lymph # (Auto) 1.2 K/uL (1.0-4.3) 12/10/18 18:30 Carbon # (Auto) 0.3 K/uL (0.0-0.8) 12/10/18 18:30 Eos # (Auto) 0.1 K/uL (0.0-0.7) 12/10/18 18:30 Baso # (Auto) 0.0 K/uL (0.0-0.2) 12/10/18 18:30 PT 11.8 Seconds (9.8-13.1) 12/10/18 16:20 INR 1.0 12/10/18 16:20 APTT 34.7 Seconds (25.6-37.1) 12/10/18 16:20 Sodium 132 mmol/l (132-148) 12/11/18 05:00 Potassium 3.6 MMOL/L (3.6-5.0) 12/11/18 05:00 Chloride 93 mmol/L (98-107) L 12/11/18 05:00 Carbon Dioxide 30 mmol/L (22-30) 12/11/18 05:00 Anion Gap 13 (10-20) 12/11/18 05:00 BUN 10 mg/dl (7-17) 12/11/18 05:00 Creatinine 0.6 mg/dl (0.7-1.2) L 12/11/18 05:00 Est GFR ( Amer) > 60 12/11/18 05:00 Est GFR (Non-Af Amer) > 60 12/11/18 05:00 POC Glucose (mg/dL) 69 mg/dL (65-110) 12/12/18 11:28 Random Glucose 87 mg/dL (65-105) 12/11/18 05:00 Hemoglobin A1c 5.6 % (4.2-6.5) 12/10/18 18:04 Calcium 8.6 mg/dL (8.4-10.2) 12/11/18 05:00 Total Bilirubin 0.9 mg/dl (0.2-1.3) 12/10/18 15:23 AST 42 U/L (14-36) H 12/10/18 15:23 ALT < 6 U/L (9-52) L D 12/10/18 15:23 Alkaline Phosphatase 73 U/L (38-126) 12/10/18 15:23 Troponin I < 0.0120 ng/mL (0.00-0.120) 12/10/18 15:23 Total Protein 8.6 G/DL (6.3-8.2) H 12/10/18 15:23 Albumin 4.3 g/dL (3.5-5.0) 12/10/18 15:23 Globulin 4.3 gm/dL (2.2-3.9) H 12/10/18 15:23 Albumin/Globulin Ratio 1.0 (1.0-2.1) 12/10/18 15:23 Triglycerides 97 mg/DL (0-149) 12/11/18 05:00 Cholesterol 218 mg/dL (0-199) H 12/11/18 05:00 LDL Cholesterol Direct 120 mg/dL (0-129) 12/11/18 05:00 HDL Cholesterol 57 MG/DL (30-70) 12/11/18 05:00 Thyroxine (T4) 1.53 ug/dl (5.5-11.0) L 12/11/18 05:00 TSH 3rd Generation 27.10 mIU/ML (0.46-4.68) H 12/11/18 05:00 Blood Type O POSITIVE 12/10/18 15:50 Antibody Screen Negative 12/10/18 15:50 BBK History Checked Patient has bt 12/10/18 15:50 - Hospital Course Hospital Course: SPEECH RETURNED MORE ALERT DAUGHTER AT BEDSIDE AND INDICATES THAT PT IS BACK TO BASELINE Discharge Exam - Head Exam Head Exam: ATRAUMATIC, NORMAL INSPECTION, NORMOCEPHALIC - Eye Exam Eye Exam: EOMI, Normal appearance, PERRL Pupil Exam: NORMAL ACCOMODATION, PERRL - GI/Abdominal Exam GI & Abdominal Exam: Normal Bowel Sounds - Rectal Exam Rectal Exam: NORMAL INSPECTION - Neurological Exam Neurological exam: Alert, CN II-XII Intact, Normal Gait, Oriented x3, Reflexes Normal - Psychiatric Exam Psychiatric exam: Normal Affect, Normal Mood - Skin Skin Exam: Dry, Intact, Normal Color, Warm Discharge Plan - Follow Up Plan Condition: FAIR Disposition: HOME/ ROUTINE Additional Instructions: DISCHARGE TODAY FOLLOW UP WITH DR TAYLOR
--- NOTE | 2018-12-12 14:38 | CP.PCM.PN ---
Subjective - Date & Time of Evaluation Date of Evaluation: 12/12/18 Time of Evaluation: 11:30 - Subjective Subjective: Neuro Follow-Up Note: Mrs. Mau Dukes was evaluated this morning at bedside. She has no complaints today and feels well. Eager to go home. Denies h/a, dizziness, visual changes, chest pain, palpitations, sob, cough, abd pain, n/v/d. Objective - Vital Signs/Intake and Output Vital Signs (last 24 hours): Temp Pulse Resp BP Pulse Ox 97.9 F 63 20 91/53 L 96 12/12/18 08:39 12/12/18 08:39 12/12/18 08:39 12/12/18 08:39 12/12/18 08:39 - Medications Medications: Current Medications Acetaminophen (Tylenol 325mg Tab) 650 mg PO Q6 PRN PRN Reason: Headache Ascorbic Acid (Vitamin C 500 Mg Tab) 500 mg PO DAILY [facility] Last Admin: 12/12/18 09:38 Dose: 500 mg Atorvastatin Calcium (Lipitor) 10 mg PO DAILY [facility] Last Admin: 12/12/18 09:39 Dose: 10 mg Citalopram Hydrobromide (Celexa) 10 mg PO Q12 [facility] Last Admin: 12/12/18 11:00 Dose: 10 mg Docusate Sodium (Colace) 100 mg PO Q12 [facility] Last Admin: 12/12/18 09:38 Dose: 100 mg Ferrous Sulfate (Feosol) 325 mg PO Q8 [facility] Last Admin: 12/12/18 09:38 Dose: 325 mg Sodium Chloride (Sodium Chloride 0.9%) 1,000 mls @ 100 mls/hr IV .Q10H [facility] Last Admin: 12/11/18 21:19 Dose: 100 mls/hr Lamotrigine (Lamictal) 25 mg PO Q12 [facility] Last Admin: 12/12/18 09:38 Dose: 25 mg Levothyroxine Sodium (Synthroid) 75 mcg PO DAILY@0630 [facility] Last Admin: 12/12/18 06:19 Dose: 75 mcg Oxybutynin Chloride (Ditropan Tab) 5 mg PO Q12 [facility] Last Admin: 12/12/18 09:38 Dose: 5 mg Topiramate (Topamax) 25 mg PO QPM [facility] Last Admin: 01/31/19 17:46 Dose: 25 mg - Labs Labs: 12/11/18 05:00 12/11/18 05:00 PT 11.8 Seconds (9.8-13.1) 12/10/18 16:20 INR 1.0 12/10/18 16:20 APTT 34.7 Seconds (25.6-37.1) 12/10/18 16:20 - Constitutional Appears: Well, Non-toxic, No Acute Distress - Eye Exam Eye Exam: EOMI, Normal appearance Pupil Exam: NORMAL ACCOMODATION, PERRL - ENT Exam ENT Exam: Mucous Membranes Moist - Neck Exam Neck Exam: Full ROM, Normal Inspection - Respiratory Exam Respiratory Exam: NORMAL BREATHING PATTERN - Extremities Exam Extremities Exam: Full ROM. absent: Calf Tenderness, Pedal Edema - Back Exam Back Exam: Full ROM - Neurological Exam Neurological Exam: Alert, Awake, CN II-XII Intact, Reflexes Normal Neuro motor strength exam: Left Upper Extremity: 5, Right Upper Extremity: 5, Left Lower Extremity: 5, Right Lower Extremity: 5 Additional comments: AAOx3; follows commands Speech clear and fluid No motor or sensory deficits noted No tremors Gait not assessed. - Psychiatric Exam Psychiatric exam: Normal Affect, Normal Mood - Skin Skin Exam: Normal Color Assessment and Plan - Assessment and Plan (Free Text) Assessment: Mrs. Mau Dukes is a 43 y/o F who was admitted status post fall and head injury. She has a h/o hydrocephalus with a corporate v[employer] advertising & online shunt. She follows up with Dr. Alvarez in the office. She is at her baseline mental status and is doing generally well. -EEG: This is an abnormal EEG record due to the presence of Right posterior quadrant intermittent slowing. No seizures, no interictal, not in status epilepticus. The findings are in keeping with a focal cortical abnormality involving the right posterior quadrant region, in keeping with a structural abnormality in the same area. -CT Head: No interval hemorrhage or interval mass effect seen. Hydrocephalus- similar to perhaps slightly increased in caliber since prior exam. Right ventriculostomy tube positioning projects along the superior aspect of the posterior parietal occipital ventricle are not patchy of the same. No definite change in position of the shunt tube is seen here. However the tip may be actually within in the regional cystic encephalomalacia changes here rather than within the ventricle proper. Correlation with shunt function is advised. Encephalomalacia changes right Lisa shunt and right cerebellar hemisphere is similar in appearance as above. Postop changes as above. -CTA Head and Neck: no LV occlusion -Continue all current medications -Follow up with her neurologist, Dr. Alvarez in the office. -Reconsult prn Thank you for allowing us to participate in this pt's care. Case discussed with Dr. Edwards
--- NOTE | 2018-12-13 11:55 | PQF ---
PROVIDER RESPONSE TEXT: CVA RULED OUT REVIEWER QUERY TEXT: Condition Necessitating Admission Please clarify the medical condition(s) necessitating admission and CVA ruled in or CVA ruled out? H and P includes; Fall; accidental or due to cerebrovascular accident has to be ruled out.History of hydrocephalus with ventriculoperitoneal shunt.Aphasia at present; one has to rule out new cerebrovasc ular accident. 12/11: Neuro consult in draft: includes:-- had a fall with head injury about 3 hours prior to arrival and developed confusion and speech difficulty.CT head showed encephalomalacia around the shunt and in the posterior fossa. She was not a good candidate for IV tPA due to recent fall with head injury and history of shunt and was 3 hours after symptom onset which increased the risk of bleeding significantly.There was no large vessel occlusion on CTA of the head/neck. The patient's Clinical Indicators include: -- Query created by: Mariela Johnson on 12/12/2018 11:25 AM Electronically signed by: Saleem Laguerre MD 12/13/2018 11:51 AM
== END 2018-12-12 16:05 | disposition home or self-care (01) | DRG 444 ==
LOC: H.ER 14:03 → H.ERHOLD 15:11 → H.TEL 17:55
PROVIDERS: ADMIT Internal Medicine Pulmonary Disease; ATTEND Internal Medicine Pulmonary Disease
DX: S09.90XA Unspecified injury of head, initial encounter (principal); G91.9 Hydrocephalus, unspecified; S00.03XA Contusion of scalp, initial encounter; G93.40 Encephalopathy, unspecified; R47.01 Aphasia; G40.909 Epilepsy, unspecified, not intractable, without status epilepticus; G93.89 Other specified disorders of brain; Z98.2 Presence of cerebrospinal fluid drainage device; E03.9 Hypothyroidism, unspecified; F41.9 Anxiety disorder, unspecified; W01.0XXA Fall on same level from slipping, tripping and stumbling without subsequent striking against object, initial encounter; Y92.009 Unspecified place in unspecified non-institutional (private) residence as the place of occurrence of the external cause; Z23 Encounter for immunization; F32.9 Major depressive disorder, single episode, unspecified; K29.70 Gastritis, unspecified, without bleeding; E78.5 Hyperlipidemia, unspecified; Z79.890 Hormone replacement therapy